=== PATIENT | female | born 1950 | race Caucasian/White ===

== ENCOUNTER → 2017-02-19 | Outpatient (CLI) | payer MEDICARE ==
--- NOTE | 2017-02-19 12:19 | RADIOLOGY REPORT PS360 ---
KNEE-4 OR 5 VIEWS-RT HISTORY: Right knee pain LUIS CARLOS KNEE PAIN ORDERING PHYSICIAN: AD POLANCO MD PATIENT AGE: 66 years COMPARISON: None FINDINGS: There are moderate osteoarthritic changes of the medial compartment and mild osteoarthritic change at the patellofemoral joint. There is mild lateral patellar subluxation. No fracture or dislocation. No lytic or blastic change. IMPRESSION: 1. Osteoarthritis of the medial compartment. 2. Mild lateral patellar subluxation
--- NOTE | 2017-02-19 12:20 | RADIOLOGY REPORT PS360 ---
KNEE-4 OR 5 VIEWS-LT HISTORY: Left knee pain LUIS CARLOS KNEE PAIN ORDERING PHYSICIAN: AD POLANCO MD PATIENT AGE: 66 years COMPARISON: None FINDINGS: No fracture or dislocation. No lytic or blastic change. Normal mineralization. Moderate osteoarthritic changes are present involving the medial compartment with loss of joint space and osteosclerosis with osteophyte formation. No other significant findings IMPRESSION: Moderate osteoarthritic change of the medial compartment
== END ==
LOC: RAD 10:21
DX: M25.561 Pain in right knee (principal); M25.562 Pain in left knee